=== PATIENT | female | born 1990 | race Hispanic/Latino ===

== ENCOUNTER 2022-06-17 13:20 | Outpatient (CLI) | payer OTHER | END 2022-06-17 13:21 | disposition home or self-care (01) | LOC: CSHULT 13:20 | PROVIDERS: ATTEND Family Medicine | DX: O09.892 Supervision of other high risk pregnancies, second trimester (principal); Z3A.27 27 weeks gestation of pregnancy | CPT/HCPCS: 76805 ==

== ENCOUNTER 2022-09-09 05:25 | Inpatient (IN) | payer MEDICAID, OTHER ==
[2022-09-08 13:38] LABS: #Eosinphils 0.1 10x3/uL (0.0-0.5); #Monocytes 0.7 10x3/uL (0.0-1.1); #Neutrophils 7.3 10x3/uL (1.5-8.4); %Basophils 0.4 % (0.0-2.0); %Eosinophils 0.9 % (0.0-6.0); %Lymphocytes 16.8 % (18.0-47.0); %Monocytes 7.3 % (0.0-10.0); Hemoglobin 12.7 g/dL (12.0-15.5); Mean Corpuscular Hemoglobin 28.8 pg (27.0-33.0); Mean Corpuscular Volume 84.8 fl (81.6-98.3); Mean Platelet Volume 12.5 fl (7.4-10.4); Platelet Count 194 10x3/uL (150-450); RBC Distribution Width 14.7 % (11.5-14.5); Red Blood Cell (RBC) Count 4.41 10x6/uL (3.90-5.03); White Blood Cell (WBC) Count 9.9 10x3/uL (3.5-10.5)
[2022-09-08 14:08] LABS: SARS-CoV-2 NAA Rapid Test Not Detected (NotDetected)
[2022-09-08 14:16] LABS: Syphilis Antibody Nonreactive (Nonreactive); Syphilis Antibody Index 0.05 S/CO (<1.00 Non-Reactive)
[2022-09-08 14:17] LABS: HBSAg Index 0.15 S/CO (0-0.99); Hep B Surf Ag Non-Reactive S/CO (NonReactive)
[2022-09-09] MEDS ORDERED: Promethazine HCl 25 MG/ML VIAL IM PRN ×3 (05:28→12:06)
[2022-09-09] MEDS ORDERED: Famotidine/PF 20 mg/2ml Vial SLOW IVP PRN (05:28)
[2022-09-09] MEDS ORDERED: Bicitra 30 ML UDCUP PO PRN (05:28)
[2022-09-09] MEDS ORDERED: Lactated Ringer's 1,000 ML IV SCH (05:28)
[2022-09-09] MEDS ORDERED: CEFAZOLIN 3 GM in Sodium Chloride 0.9% 100 ML IVPB SCH ×2 (05:28→06:00)
[2022-09-09] MEDS ORDERED: Ondansetron PF 4 MG/2 ML Vial IVP PRN ×3 (05:28→12:06)
[2022-09-09] MEDS ORDERED: hydrALAZINE 20 MG/ML VIAL SLOW IVP PRN ×2 (05:28→12:06)
[2022-09-09 06:47] VITALS: BMI 54.8
[2022-09-09] MEDS ORDERED: PHENYLEPHRINE-NS 100 MCG/ML 10 ML SYRINGE ONE (06:48)
[2022-09-09] MEDS ORDERED: Ondansetron PF 4 MG/2 ML Vial ONE (06:48)
[2022-09-09] MEDS ORDERED: Oxytocin 10 UNITS/ML VIAL ONE ×2 (06:49→09:29)
[2022-09-09] MEDS ORDERED: Ketorolac Tromethamine 30 MG/ML VIAL ONE (06:49)
[2022-09-09] MEDS ORDERED: Morphine PF 10 MG/10 ML VIAL ONE (06:50)
[2022-09-09] MEDS ORDERED: ePHEDrine Sulfate 50 MG/10 ML VIAL ONE (06:50)
[2022-09-09] MEDS ORDERED: Phenylephrine 40 MG/NS 250 ML 250 ML ONE (06:54)
[2022-09-09] MEDS ORDERED: Meperidine HCl/PF 25 MG/ML VIAL SLOW IVP PRN (07:04)
[2022-09-09] MEDS ORDERED: Naloxone HCl 0.4 mg/ml Vial IV PRN (07:04)
[2022-09-09] MEDS ORDERED: Fentanyl 100 MCG/2 ML VIAL SLOW IVP PRN (07:04)
[2022-09-09] MEDS ORDERED: Ketorolac Tromethamine 30 MG/ML VIAL IVP PRN (07:04)
[2022-09-09] MEDS ORDERED: Promethazine HCl 25 MG SUPP PR PRN (07:04)
[2022-09-09] MEDS ORDERED: Moisturizing Cream (Eucerin) 113 GM JAR TOP PRN (07:04)
[2022-09-09] MEDS ORDERED: Ondansetron HCl/PF 4 MG/2 ML Vial IVP PRN (07:04)
[2022-09-09] MEDS ORDERED: diphenhydrAMINE 50 MG/ML VIAL IVP PRN (07:04)
[2022-09-09] MEDS ORDERED: Naloxone HCl 0.4 mg/ml Vial IVP PRN ×2 (07:04)
[2022-09-09] MEDS ORDERED: Ketorolac Tromethamine 30 MG/ML VIAL IVP SCH (07:15)
[2022-09-09] MEDS ORDERED: Communication Order-Pharmacy FS SCH (07:15)
[2022-09-09] MEDS ORDERED: Dexamethasone 4 mg/ml Vial ONE (09:07)
[2022-09-09] MEDS ORDERED: Lanolin Ointment 7 GM TUBE TOP PRN (12:06)
[2022-09-09] MEDS ORDERED: Boostrix 0.5 ML (Tdap) VIAL (>/=7 yrs of age) IM ONE (12:06)
[2022-09-09] MEDS ORDERED: Simethicone Chewable 80 MG TAB PO PRN (12:06)
[2022-09-09] MEDS ORDERED: diphenhydrAMINE 25 MG CAP PO PRN (12:06)
[2022-09-09] MEDS ORDERED: Meperidine HCl/PF 25 MG/ML VIAL IM PRN (12:06)
[2022-09-09] MEDS ORDERED: Bisacodyl 10 MG SUPP PR PRN (12:06)
[2022-09-09] MEDS ORDERED: Prenatal Vitamin 1 TAB PO SCH (12:30)
[2022-09-09] MEDS ORDERED: Docusate 100 MG CAP PO SCH (12:30)
[2022-09-09] MEDS ORDERED: Ferrous Sulfate 325 MG TAB PO SCH (12:30)
[2022-09-09] MEDS: Ketorolac Tromethamine 30 MG/ML VIAL IVP SCH ×2 (15:41→21:33)
[2022-09-09] MEDS: Ferrous Sulfate 325 MG TAB PO SCH (21:30)
[2022-09-09] MEDS: Docusate 100 MG CAP PO SCH (21:33)
[2022-09-10] MEDS: Ketorolac Tromethamine 30 MG/ML VIAL IVP SCH ×2 (03:57→08:33)
[2022-09-10 04:48] LABS: Hemoglobin 10.3 g/dL (12.0-15.5); Mean Corpuscular HGB CONC 33.3 g/dL (32.0-36.0); Mean Corpuscular Hemoglobin 28.9 pg (27.0-33.0); Mean Corpuscular Volume 86.6 fl (81.6-98.3); Mean Platelet Volume 12.9 fl (7.4-10.4); Platelet Count 189 10x3/uL (150-450); RBC Distribution Width 14.6 % (11.5-14.5); Red Blood Cell (RBC) Count 3.57 10x6/uL (3.90-5.03); White Blood Cell (WBC) Count 13.1 10x3/uL (3.5-10.5)
[2022-09-10] MEDS: Ferrous Sulfate 325 MG TAB PO SCH ×2 (08:29→21:55)
[2022-09-10] MEDS: Prenatal Vitamin 1 TAB PO SCH (08:33)
[2022-09-10] MEDS: Docusate 100 MG CAP PO SCH ×2 (08:33→21:55)
[2022-09-10] MEDS: HYDROcodone/Acetaminophen 5/325 mg Tablet PO PRN ×2 (11:06→17:31)
[2022-09-10] MEDS: Ibuprofen 800 MG TAB PO SCH ×2 (14:32→21:55)
[2022-09-11] MEDS: HYDROcodone/Acetaminophen 5/325 mg Tablet PO PRN ×3 (01:22→19:37)
[2022-09-11] MEDS: Ibuprofen 800 MG TAB PO SCH ×3 (05:28→21:25)
[2022-09-11] MEDS: Ferrous Sulfate 325 MG TAB PO SCH ×2 (07:55→21:25)
[2022-09-11] MEDS: Docusate 100 MG CAP PO SCH ×2 (08:59→21:25)
[2022-09-11] MEDS: Prenatal Vitamin 1 TAB PO SCH (08:59)
[2022-09-11] MEDS ORDERED: Meclizine HCl 25 MG TAB PO PRN (12:42)
[2022-09-12] MEDS: Ibuprofen 800 MG TAB PO SCH (05:35)
[2022-09-12 07:52] VITALS: BP 146/68; TEMP 98.2
[2022-09-12] MEDS: Docusate 100 MG CAP PO SCH (08:41)
[2022-09-12] MEDS: HYDROcodone/Acetaminophen 5/325 mg Tablet PO PRN (08:41)
[2022-09-12] MEDS: Prenatal Vitamin 1 TAB PO SCH (08:41)
[2022-09-12] MEDS: Ferrous Sulfate 325 MG TAB PO SCH (08:42)
== END 2022-09-12 12:50 | disposition home or self-care (01) | DRG 788 ==
LOC: CSHLD 05:25 → CSHPP 11:30
PROVIDERS: ADMIT Family Medicine; ATTEND Family Medicine
PROC: 10D00Z1 Extraction of Products of Conception, Low, Open Approach (ICD-10-PCS; principal; 2022-09-09)
DX: O34.211 Maternal care for low transverse scar from previous cesarean delivery (principal); Z3A.39 39 weeks gestation of pregnancy; Z37.0 Single live birth; Z20.822 Contact with and (suspected) exposure to COVID-19; O99.214 Obesity complicating childbirth; O99.824 Streptococcus B carrier state complicating childbirth; E66.01 Morbid (severe) obesity due to excess calories
CPT/HCPCS: 36415; 36416; 51702; 85025; 85027; 86780; 86850; 86900; 86901; 87340; J1100; J1200; J1885; J2274; J2405; J2590; U0002